=== PATIENT | female | born 1945 | race Caucasian/White ===

== ENCOUNTER → 2017-09-05 | Outpatient (CLI) | payer BC | LOC: FIMAGING 13:26 | PROVIDERS: ATTEND Physician Assistant Medical | DX: Z12.31 Encounter for screening mammogram for malignant neoplasm of breast (principal); Z80.3 Family history of malignant neoplasm of breast ==

== ENCOUNTER → 2018-10-02 | Outpatient (CLI) | payer BC | LOC: FIMAGING 09:49 | PROVIDERS: ATTEND Physician Assistant Medical | DX: Z12.31 Encounter for screening mammogram for malignant neoplasm of breast (principal); Z80.3 Family history of malignant neoplasm of breast ==

== ENCOUNTER → 2018-10-23 | Outpatient (CLI) | payer BC | LOC: SUPIMAGING 15:39 → EDSTATUS 16:46 | PROVIDERS: ATTEND Physician Assistant Medical | DX: M79.675 Pain in left toe(s) (principal) | CPT/HCPCS: 73660-PN ==

== ENCOUNTER → 2018-10-25 | Outpatient (CLI) | payer BC | LOC: FIMAGING 19:14 ==